=== PATIENT | male | born 1945 | race Caucasian/White ===

== ENCOUNTER → 2017-01-10 | Outpatient (CLI) | payer BC ==
[~2017-01-10] MED LIST: ASPEC325 PO; ISOS30TA3 PO; LISI-461 PO; METO100T14 PO; NTRARSCL UT; SIMV40TA4 PO
[2017-01-10 09:41] LABS: BASO % 1.1 %; BASO ABS # 0.06 K/uL (0-0.2); COMPLETE YES; EOS % 9.5 %; HEMATOCRIT 37.9 % (42-52); IG% 0.2 %; LYMPH % 36.9 %; LYMPH ABS # 1.98 K/uL (1.2-3.4); MEAN CELL VOLUME 90.5 fL (80-100); MEAN CORPUSCULAR HEMOGLOBIN 30.8 pg (25-34); MEAN PLATELET VOLUME 10.7 fL (7.4-10.4); MONO % 12.1 %; NEUT % 40.2 %; PLATELET COUNT 184 K/uL (130-400); RED BLOOD COUNT 4.19 M/uL (4.7-6.1); WHITE BLOOD COUNT 5.36 K/uL (4.8-10.8)
[2017-01-10 09:58] LABS: BLOOD UREA NITROGEN 17 mg/dl (7-18); BUN/CREATININE RATIO 15.2 (10-20); CALCIUM 8.4 mg/dl (8.5-10.1); CARBON DIOXIDE 29 mmol/L (21-32); CHLORIDE 104 mmol/L (98-107); CREATININE 1.09 mg/dl (0.60-1.40); GLUCOSE 91 mg/dl (70-99); POTASSIUM 4.5 mmol/L (3.5-5.1); SODIUM 139 mmol/L (136-145)
== END | disposition home or self-care (01) ==
LOC: C.LAB 08:30
PROVIDERS: ATTEND Internal Medicine Geriatric Medicine
DX: I25.10 Atherosclerotic heart disease of native coronary artery without angina pectoris (principal); M19.90 Unspecified osteoarthritis, unspecified site; D64.9 Anemia, unspecified

== ENCOUNTER → 2017-09-01 | Outpatient (CLI) | payer BC ==
--- NOTE | 2017-09-01 17:26 | DIAGNOSTIC IMAGING REPORT ---
RIGHT FIFTH TOE 4 VIEWS CLINICAL HISTORY: M79.89 RIGHT FIFTH TOE PAIN COMPARISON: None. DISCUSSION: No fractures or dislocations are visualized. No destructive lesions are visualized on conventional radiographic imaging area IMPRESSION: 1. No fractures or dislocations identified 2. No destructive lesions are visualized on conventional radiographic imaging Electronically signed by: Darren Walter M.D. 09/01/2017 5:25 PM Dictated Date/Time: 09/01/2017 5:24 PM
== END | disposition home or self-care (01) ==
LOC: C.RAD1850 16:23
PROVIDERS: ATTEND Internal Medicine
DX: M79.89 Other specified soft tissue disorders (principal)

== ENCOUNTER → 2017-09-01 | Outpatient (CLI) | payer BC | END | disposition home or self-care (01) | LOC: C.LABSPEC 17:49 | PROVIDERS: ATTEND Internal Medicine | DX: M79.89 Other specified soft tissue disorders (principal); S91.301A Unspecified open wound, right foot, initial encounter; X58.XXXA Exposure to other specified factors, initial encounter ==

== ENCOUNTER 2019-11-29 05:29 | Observation (INO) ==
--- NOTE | 2019-11-01 07:17 | PAT Medication Instructions ---
Medication Instructions Date of Service November 01, 2019 Home Medications Medication Instructions Recorded aspirin 81 mg PO QAM #30 tab 10/10/19 finasteride 5 mg tablet 5 mg PO DAILY #90 tab 10/26/19 tamsulosin 0.4 mg capsule 0.4 mg PO HS #90 cap 10/26/19 isosorbide mononitrate 30 mg tablet,extended release 24 hr 30 mg PO QAM metoprolol tartrate 100 mg tablet 100 mg PO BID simvastatin 40 mg tablet 40 mg PO QPM aspirin 81 mg PO QAM finasteride 5 mg tablet 5 mg PO DAILY tamsulosin 0.4 mg capsule 0.4 mg PO HS ASK your prescriber and surgeon aspirin 81 mg PO QAM Take morning of surgery With a small sip of water, OTHERWISE NOTHING TO EAT OR DRINK AFTER MIDNIGHT: isosorbide mononitrate 30 mg tablet,extended release 24 hr 30 mg PO QAM metoprolol tartrate 100 mg tablet 100 mg PO BID finasteride 5 mg tablet 5 mg PO DAILY Take evening before surgery metoprolol tartrate 100 mg tablet 100 mg PO BID simvastatin 40 mg tablet 40 mg PO QPM tamsulosin 0.4 mg capsule 0.4 mg PO HS Other Notes If you have any questions please call us at [phone] or [phone] or [phone] or [phone]
--- NOTE | 2019-11-01 11:57 | Anesthesiology Consultation ---
Date of Service November 01, 2019 Assessment & Plan (1) Encounter for pre-operative examination: COVID Status: As of 10/31 assessment, patient denies travel to endemic area, known exposure/sick contacts, or symptoms of COVID19. Patient instructed that they and their household members must follow strict social distancing guidelines, wear a mask in public and avoid travel for 14 days prior to surgery. Preoperative COVID19 testing to be completed prior to surgery per surgeon's a rrangements. Patient made aware to self-isolate as much as possible between COVID testing and surgery. Chart Review Chart Review: Acceptable Risk for Surgery (pending surgeon-ordered PCP clearance 11/07) and Patient seen in Pre Admission Testing Teaching & Discussion Instructed NPO after midnight before surgery, except medications with 15 cc of water. Medication instructions provided according to the PAT guidelines. History Surgery Operation Date: 11/19/19 09:15 Proposed Procedures p Transurethral Resection Prostate, Bilateral Retrograde Pyelogram, Possible Ureteroscopy - Santy Rodriguez, Height/Weight Height: 5 ft 10 in Weight: 79.832 kg Allergies Allergy/AdvReac Type Severity Reaction Status Date / Time lisinopril AdvReac Cough Verified 10/26/19 09:54 Medications Home Medications Medication Instructions Recorded Confirmed Last Taken isosorbide mononitrate 30 mg 30 mg PO QAM #90 tab 02/06/19 10/26/19 10/09/19 tablet,extended release 24 hr metoprolol tartrate 100 mg tablet 100 mg PO BID #60 tab 02/06/19 10/26/19 10/09/19 simvastatin 40 mg tablet 40 mg PO QPM #30 tab 02/06/19 10/26/19 10/08/19 aspirin 81 mg PO QAM #30 tab 10/10/19 10/26/19 Unknown finasteride 5 mg tablet 5 mg PO DAILY #90 tab 10/26/19 10/26/19 Unknown tamsulosin 0.4 mg capsule 0.4 mg PO HS #90 cap 10/26/19 10/26/19 Unknown Past Medical History Medical History (Updated 11/02/19 @ 12:49 by Atilio Vides) Arthritis Coronary artery disease [place] (1993). Catheterization with 100% prox LAD occlusion + 60% prox RCA lesion. Repeat catheterization (2004) with similar findings. Treated medically with full dose ASA + statin + BB + long acting nitrate + nitro PRN. Normal biventricular function on echo 2008. Follows with Dr. Singh. Diverticulosis Dyslipidemia Enlarged prostate on rectal examination Hiatal hernia History of recent hospitalization 10/09/2019 [facility] - urinary retention, ARF Hypertension Left inguinal hernia Normocytic anemia Chronic, stable with baseline H/H ~12/35 Urinary retention Exercise / Class Metabolic Activity II 4-5 Yardwork/Stairs/Walk up hill (Denies CP or SOB with 1 fos) Past Family History Family History Father Heart disease Stroke Brother Heart disease Myocardial infarction Other No family history of adverse response to anesthesia Denies family history of Ovarian cancer Prostate cancer Breast cancer Colorectal cancer Past Surgical History Surgical History H/O inguinal hernia repair History of cardiac cath [facility] [place] - [place] - [place] - no stents/angioplasty [facility] [place] - 2004 - no stents/angioplasty - reports 3 blockages but w/ esthela manley Follows w/ Dr. Singh History of colonoscopy History of tooth extraction Past Anesthesia History No Hx of Anesthesia Complications and No Family Hx of Anesthesia Complications History of PONV No Hx of PONV and No Hx of Motion Sickness Social History Smoking Status: Former smoker tobacco type: cigarettes Do You Dip or Chew Tobacco: No Smoking End Date: > 10 years ago Hx Alcohol Use: Yes Alcohol type: beer and wine alcohol intake frequency: a few times a month (none lately) Hx Substance Use: No substance use type: does not use Review of Systems Pt denies any recent chest pain, shortness of breath, palpitations, cough, fever, URI, or uncontrolled acid reflux. Physical Exam Vital Signs BP: 115/62 P: 66bpm SPO2: 98% RA T: 98.2 F R: 12 ENMT Mouth: + dentures (upper full); no chipped teeth and no loose teeth Thyromental Distance: < 3.5 Finger Breadths (3) Mallampati Class: II Neck normal visual inspection and + limited neck extension (moderately) Respiratory normal respiratory effort Auscultation: lungs clear to auscultation bilaterally Cardiovascular Rate/Rhythm: regular rate and regular rhythm Heart Sounds: no murmur Extremities: no edema Testing Laboratory Results 11/01/19 11:55 11/01/19 11:55 Urine Color Yellow 11/01/19 11:55 Urine Appearance Clear (Clear) 11/01/19 11:55 Urine pH 7.5 (4.5-7.5) 11/01/19 11:55 Ur Specific [place] 1.013 (1.000-1.030) 11/01/19 11:55 Urine Protein Negative (Negative) 11/01/19 11:55 Urine Glucose (UA) Negative (Negative) 11/01/19 11:55 Urine Ketones Negative (Negative) 11/01/19 11:55 Urine Nitrite Negative (Negative) 11/01/19 11:55 Ur Leukocyte Esterase Negative (Negative) 11/01/19 11:55 Urine WBC (Auto) 1-5 /hpf (0-5) 11/01/19 11:55 Urine RBC (Auto) 5-10 /hpf (0-4) H 11/01/19 11:55 U Hyaline Cast (Auto) 0 /lpf (0-5) 11/01/19 11:55 U Epithel Cells (Auto) 5-10 /lpf (0-5) H 11/01/19 11:55 Urine Bacteria (Auto) 1+ (Negative) H 11/01/19 11:55 Electrocardiogram Date: 10/09/19 Findings: + SB @ (54bpm) Septal infarct, age undetermined. Per review of records, septal infarct also present on 03/06/19 EKG done at cardiology office visit and reviewed by Dr. Singh. "QS complexes V1 and V2. Inverted T-wave lead aVL. Compared to an electrocardiogram performed September 18, 2015 there is no significant interval change." Chest X-Ray Date: 10/02/19 Findings: + NAD
[2019-11-01 13:25] LABS: Basophils # (auto) 0.06 K/uL (0-0.2); Eosinophils # (auto) 0.46 K/uL (0-0.5); Eosinophils % (auto) 7.9 %; Hematocrit (blood only) 34.3 % (42-52); Hemoglobin 11.7 g/dL (14.0-18.0); Immature Granulocytes # (auto) 0.01 K/uL (0.00-0.02); Immature Granulocytes % (auto) 0.2 %; Lymphocytes # (auto) 1.71 K/uL (1.2-3.4); Lymphocytes % (auto) 29.5 %; Mean Corpuscular Hemoglobin 30.8 pg (25-34); Mean Corpuscular Hgb Conc 34.1 g/dL (32-36); Mean Corpuscular Volume 90.3 fL (80-100); Mean Platelet Volume 10.6 fL (7.4-10.4); Monocytes # (auto) 0.47 K/uL (0.11-0.59); Monocytes % (auto) 8.1 %; Neutrophils # (auto) 3.09 K/uL (1.4-6.5); Neutrophils % (auto) 53.3 %; Platelet Count 193 K/uL (130-400); RDW Coefficient of Variation 12.5 % (11.5-14.5); RDW Standard Deviation 41.2 fL (36.4-46.3)
[2019-11-01 13:37] LABS: Appearance Urine Clear (Clear); Bacteria Urine Automated 1+ (Negative); Bilirubin Urine Negative (Negative); Blood Urine Trace (Negative); Cast Urine Automated 0 /lpf (0-5); Color Urine Yellow; Glucose Urine UA Negative (Negative); Ketones Urine Negative (Negative); Leukocyte Esterase Urine Negative (Negative); Nitrite Urine Negative (Negative); Protein Urine Negative (Negative); Specific Gravity Urine 1.013 (1.000-1.030); Urobilinogen Urine Negative (Negative); pH Urine 7.5 (4.5-7.5)
[2019-11-01 13:39] LABS: BUN Creatinine Ratio 13.7 (10-20); Calcium 8.8 mg/dl (8.5-10.1); Creatinine Clr Calc Pharmacy 43.1 ml/min; Est GFR (African American) 50.8; Est GFR (Non-African American) 43.8; Potassium 4.9 mmol/L (3.5-5.1)
[~2019-11-29 05:29] MED LIST changes: -ASPEC325 PO; +CIPROFLOXACIN / D5W 400 MG/200 ML BAG IV SCH; -ISOS30TA3 PO; +LACTATED RINGER'S 1,000 ML IV SCH; -LISI-461 PO; -METO100T14 PO; -NTRARSCL UT; -SIMV40TA4 PO
[2019-11-29] MEDS ORDERED: CIPROFLOXACIN / D5W 400 MG/200 ML BAG IV SCH (06:00)
[2019-11-29] MEDS ORDERED: LR 15ML/HR IV SCH (06:00)
[2019-11-29] MEDS ORDERED: PROPOFOL IV EMULSION 10 MG/ML 20 ML VIAL IV ONE (06:45)
[2019-11-29] MEDS ORDERED: fentaNYL citrate 100 MCG/2 ML VIAL ONE (06:45)
[2019-11-29] MEDS ORDERED: MIDAZOLAM HCL 1 MG/ML 2ML VIAL ONE (06:45)
[2019-11-29] MEDS ORDERED: LIDOCAINE HCL 2% 2 ML VIAL/AMP(20MG/ML) INFIL ONE (06:45)
[2019-11-29] MEDS ORDERED: MoRPHine SULFATE 4 MG/ML 1 ML CARP\\VIAL IV PRN (07:01)
[2019-11-29] MEDS ORDERED: BELLADONNA/OPIUM SUPP 60 MG SUPP PR PRN (07:01)
[2019-11-29] MEDS ORDERED: ONDANSETRON INJ 2 MG/ML 2 ML VIAL IV PRN ×2 (07:01→07:22)
[2019-11-29] MEDS ORDERED: oxyCODONE HCL IR 5 MG TAB (IMMEDIATE RELEASE) PO PRN (07:01)
--- NOTE | 2019-11-29 07:01 | History & Physical Report ---
Date of Service November 29, 2019 Assessment & Plan Admission and Anticipated Discharge Date Admission Date: Risks and benefits discussed at length for procedure. These include bleeding, infection, injury to surrounding tissues or organs, and risks associated with anesthesia. Patient states understanding and agrees to proceed. Will sign consent and schedule. Plan for Transurethral resection of prostate and bilateral retrograde pyelogram History of Present Illness Primary Care Provider: Javid Jeong DO Patient here for procedure. No changes in medical issues. No major changes in urinary issues. Continued issues and concerns. No change in pain or discomfort. No severe fevers or chills. No chest pain or shortness of breath. Risks and benefits discussed at length for procedure. These include bleeding, infection, injury to surrounding tissues or organs, and risks associated with anesthesia. Patient and/or family states understanding and agrees to proceed. Consent and supporting information completed. Allergies Allergy/AdvReac Type Severity Reaction Status Date / Time lisinopril AdvReac Cough Verified 11/29/19 05:44 Home Medications Home Medications Medication Instructions Recorded Confirmed Type isosorbide mononitrate 30 mg 30 mg PO QAM #90 tab 02/06/19 11/08/19 History tablet,extended release 24 hr metoprolol tartrate 100 mg tablet 100 mg PO BID #60 tab 02/06/19 11/29/19 History simvastatin 40 mg tablet 40 mg PO QPM #30 tab 02/06/19 11/08/19 History aspirin 81 mg PO QAM #30 tab 10/10/19 11/29/19 Rx finasteride 5 mg tablet 5 mg PO DAILY #90 tab 10/26/19 11/29/19 Rx tamsulosin 0.4 mg capsule 0.4 mg PO HS #90 cap 10/26/19 11/08/19 Rx cephalexin 500 mg capsule 500 mg PO BID 5 Days #10 cap 11/05/19 11/29/19 Rx Past Med/Surg History Medical History Arthritis Coronary artery disease [place] (1993). Catheterization with 100% prox LAD occlusion + 60% prox RCA lesion. Repeat catheterization (2004) with similar findings. Treated medically with full dose ASA + statin + BB + long acting nitrate + nitro PRN. Normal biventricular function on echo 2008. Follows with Dr. Singh. Diverticulosis Dyslipidemia Enlarged prostate on rectal examination Hiatal hernia History of recent hospitalization 10/09/2019 [facility] - urinary retention, ARF Hypertension Left inguinal hernia Normocytic anemia Chronic, stable with baseline H/H ~12/35 Urinary retention Surgical History H/O inguinal hernia repair History of cardiac cath [facility] [place] - [place] - [place] - no stents/angioplasty [facility] [place] - 2004 - no stents/angioplasty - reports 3 blockages but w/ good jacques ateral Follows w/ Dr. Singh History of colonoscopy History of tooth extraction Family History Father Heart disease Stroke Brother Heart disease Myocardial infarction Other No family history of adverse response to anesthesia Denies family history of Ovarian cancer Prostate cancer Breast cancer Colorectal cancer Social History (Updated 11/08/19 @ 08:51 by Lilly Grey) Smoking Status: Former smoker Tobacco Type: Cigarettes Age Started Using Tobacco: 15; Age Quit Using Tobacco: 64; packs per day: 1; Smoking End Date: > 10 years ago; Second Hand Exposure: No (dad was a smoker, used to smoke); Do You Dip or Chew Tobacco: No; Tobacco Cessation Education Requested by Patient: No Hx Alcohol Use: No Hx Substance Use: No Preferred Language: Hungarian Communication Ability: Effective Visual Impairment: Diminished Hearing Ability: Normal Piano Teacher Required: No Beliefs That Will Affect Care: None marital status: Current Living Situation: Spouse current occupational status: retired Feels Safe at Home: Yes Safety Concerns: Feels Safe At This Time Childhood Exposure to Second-Hand Smoke: No caffeine: Yes Dental Care, Regularly: No Physical Activity Frequency: Daily Physical Activity Frequency Comment: 2 miles daily Seatbelt Use: always Sunscreen Use: No Assistive Devices: Denture - Upper and Glasses Review of Systems All systems reviewed & are unremarkable except as noted in HPI & below Physical Exam Physical Exam: General: Alert/Arousable. No Acute illness. . HEENT: Inspection normal. Normal inspection of face. Normal inspection of neck. Psychologic: Normal affect/No change in mentation. Respiratory: No use of accessory muscles. No respiratory changes or exacerbation or changes with tachypnea or dyspnea. Cardiovascular: No tachycardia Skin: [place] and Dry. No new rashes or visible lesions. Abdomen: Normal inspection. No guarding. Results & Data ([facility]) Vital Signs (Past 12 Hours) Vital Signs Temp Pulse Resp BP Pulse Ox 11/29/19 05:52 36.5 C 64 18 147/84 H 99 PG Care Time/CCT Total # of Minutes Spent Total Time Spent with Patient: Total time spent is greater than 50% in coordination of care (as documented) at patient's floor/unit and/or counseling patient: Coding Level of Care Code 63851 Initial Inpt Care Lvl 3
[2019-11-29] MEDS ORDERED: ATROPINE SULFATE 0.1 MG/ML 10ML SYR IV PRN (07:22)
[2019-11-29] MEDS ORDERED: fentaNYL citrate 100 MCG/2 ML VIAL IV PRN (07:22)
[2019-11-29] MEDS ORDERED: ONDANSETRON INJ 2 MG/ML 2 ML VIAL ONE (07:35)
[2019-11-29] MEDS ORDERED: DIATRIZOATE MEGLUMINE 30% 100ML VIAL INSTIL ONE (08:18)
--- NOTE | 2019-11-29 08:27 | Operative Report ---
PG Post Operative Report Pre & Post Diagnosis Operation Date: 11/29/19 07:15 Pre-Op Diagnosis: Benign Prostatic Hyperplasia with Obstruction of the Bladder Post-Op Diagnosis: Benign Prostatic Hyperplasia with Obstruction of the Bladder I identified the patient and participated in the time-out.: Yes Procedure Operation Date: 11/29/19 07:15 Actual Procedures p Transurethral Resection Prostate, Bilateral Retrograde Pyelogram(Not Applicable) - Santy Rodriguez DO Surgeon Santy Rodriguez, II, DO Otr Refrigerated Cdl Truck Driver None Estimated Blood Loss 5 Findings Consistent with Post-Op Diagnosis Large Prostate with obstruction. Dilated left collecting system. Specimens Prostate adenoma. Drains 22Fr Catheter [address] Anesthesia Type General Complications none Disposition Disposition: Recovery Room Indications Patient with obstruction due to prostate enlargement. Risks and benefits discussed at length. Description of Procedure Patient was consented and brought back to the operating room. Patient was placed under anesthesia in the supine position and moved to the dorsal lithotomy position. Patient was prepped and draped in the regular sterile fashion. A time out was completed. A 30degree Cystoscope was placed into the bladder and the entire bladder was examined. The UO's were identified as well as the bladder neck, trigone, dome, and the other important landmarks. The UO was cannulized and retrograde pyelograms were completed. Moderate dilated system but no obvious stricture. The prostatic urethra and large lobes/adenoma was assessed and the veru and bladder neck identified and area/size was assessed. The resection scope was placed and the fine bipolar loop was selected. Starting at the 5 and 7 o'clock positions, a channel was created from bladder neck to the veru. The lateral edges from 1 and 11 o'clock were then resected down to the channel. The excess tissue was resected and a large channel was created. Resection was taken down to prostate capsule. The Specimen was removed and sent for analysis. The resection bed and any bleeding areas were fulgurated/cauterized and the entire area inspected. All bleeding was controlled. The bladder was inspected a final time. The bladder was emptied and irrigated. All specimen and debris was removed. The scope was removed with the bladder partially full. A catheter was placed and balloon elevated. This was easily irrigated. This was set to CBI. The patient was cleaned, aroused from anesthesia, and transferred to the pacu in stable condition having tolerated the procedure well with no complications. I was present and participated in all aspects of the procedure. The patient will be monitored in the PACU until transferred. I attest to the content of the Intraoperative Record and any orders documented therein. Any exceptions are noted below.
--- NOTE | 2019-11-29 09:39 | Fluoroscopy Report ---
INTRAOPERATIVE RADIOGRAPHS CLINICAL HISTORY: Bilateral retrograde pyelograms. Fluoroscopy time: 30 seconds. FINDINGS: 8 spot fluoroscopic views of the abdomen from bilateral retrograde pyelograms are correlate d with abdominal CT dated 10/08/2019. The initial images show contrast opacification of the left urete rs and renal collecting system. There is moderate to severe left-sided hydronephrosis. There is only mild dilatation of the left ureter. No filling defects are clearly identified. There is subsequent op acification of the right renal collecting system. There is mild to moderate right-sided hydronephrosi s. IMPRESSION: Retrograde pyelogram images showing left greater than right bilateral hydronephrosis. Electronically signed by: Abdullahi Gordon M.D. 11/29/2019 9:37 AM
[2019-11-29 09:53] LABS: Basophils # (auto) 0.03 K/uL (0-0.2); Basophils % (auto) 0.5 %; Eosinophils # (auto) 0.33 K/uL (0-0.5); Eosinophils % (auto) 5.9 %; Hematocrit (blood only) 32.7 % (42-52); Immature Granulocytes # (auto) 0.01 K/uL (0.00-0.02); Immature Granulocytes % (auto) 0.2 %; Lymphocytes % (auto) 23.1 %; Mean Corpuscular Hemoglobin 30.2 pg (25-34); Mean Corpuscular Hgb Conc 33.6 g/dL (32-36); Mean Corpuscular Volume 89.8 fL (80-100); Monocytes % (auto) 10.7 %; Neutrophils # (auto) 3.35 K/uL (1.4-6.5); Neutrophils % (auto) 59.6 %; Platelet Count 172 K/uL (130-400); RDW Coefficient of Variation 12.5 % (11.5-14.5); RDW Standard Deviation 41.4 fL (36.4-46.3); Red Blood Count 3.64 M/uL (4.7-6.1); White Blood Count 5.62 K/uL (4.8-10.8)
[2019-11-29 10:25] LABS: BUN Creatinine Ratio 12.6 (10-20); Calcium 8.6 mg/dl (8.5-10.1); Creatinine Clr Calc Pharmacy 49.9 ml/min; Est GFR (African American) 60.7; Est GFR (Non-African American) 52.4; Potassium 4.7 mmol/L (3.5-5.1)
--- NOTE | 2019-11-29 10:32 | Anesthesiology Progress Note ---
Date of Service November 29, 2019 Anesthesia Post Procedure Vital Signs Vital Signs: Temp Pulse Pulse Resp BP BP Pulse Ox 11/29/19 09:30 36.2 C L 52 L 16 118/75 98 11/29/19 09:20 55 L 15 119/65 98 11/29/19 09:10 54 L 16 113/58 L 97 11/29/19 09:00 36.8 C 53 L 17 115/68 97 11/29/19 08:50 56 L 16 118/66 100 11/29/19 08:40 54 L 14 122/63 100 11/29/19 08:29 36.0 C L 55 L 15 141/67 H 100 11/29/19 05:52 36.5 C 64 18 147/84 H 99 Transfer of Care Handoff Completed per policy Notes Mental Status: alert / awake / arousable Patient Amnestic to Procedure: Yes Nausea / Vomiting: adequately controlled Pain: adequately controlled Airway Patency, RR, SpO2: stable & adequate BP & HR: stable & adequate Hydration State: stable & adequate Anesthetic Complications: no major complications apparent
[2019-11-29] MEDS: SODIUM CHLORIDE 0.9% 1000ML 1,000 ML IV SCH ×2 (11:34→22:37)
[2019-11-29] MEDS: ceFAZolin 2000MG 2,000 MG/15 ML SYR IV SCH ×2 (14:47→22:37)
[2019-11-29] MEDS: FINASTERIDE 5 MG TAB PO SCH (14:48)
[2019-11-29] MEDS: DOCUSATE SODIUM 100 MG CAP PO SCH ×2 (14:48→20:47)
[2019-11-29] MEDS: METOPROLOL TARTRATE 100 MG TAB PO SCH (20:47)
[2019-11-29] MEDS ORDERED: SIMVASTATIN 40 MG TAB PO SCH (21:00)
[2019-11-29] MEDS ORDERED: TAMSULOSIN HCL 0.4 MG CAP PO SCH (21:00)
[2019-11-30] MEDS: ceFAZolin 2000MG 2,000 MG/15 ML SYR IV SCH (05:34)
[2019-11-30] MEDS: METOPROLOL TARTRATE 100 MG TAB PO SCH (08:02)
[2019-11-30] MEDS: FINASTERIDE 5 MG TAB PO SCH (08:02)
[2019-11-30] MEDS: DOCUSATE SODIUM 100 MG CAP PO SCH (08:03)
--- NOTE | 2019-11-30 08:47 | Urology Progress Note ---
Date of Service November 30, 2019 Assessment & Plan (1) Benign prostate hyperplasia: 74 yo M POD #1 s/p TURP with Dr. Rodriguez. - Doing well, progressing as expected. Offers no complaints and feels ready for discharge today. - Patel catheter with CBI running on slow at time of exam, urine clear yellow in tubing, no clots. - CBI clamped at 0840 this AM. - Plan to discharge to home today if he continues to progress as expected. - Patel reassessed @1015. Urine remains clear yellow in tubing, no clots. Order placed to d/c CBI. - Expected clinical course reviewed, all questions answered. - Discharge to home with Patel catheter in place, RN to teach patient on conversion to leg bag. - Will arrange appropriate outpatient follow-ups with our service. Admission and Anticipated Discharge Date Admission Date: November 29, 2019 Subjective 74 yo M POD #1 s/p TURP with Dr. Rodriguez. Pt examined at bedside this AM. Awake, sitting up in bed, appears comfortable. No issues overnight. Offers no complaints at present. Denies abdominal, suprapubic, or flank pain. Patel catheter intact, patent, CBI running on slow at time of exam, urine clear yellow in tubing, no clots. Tolerating Patel catheter. CBI clamped during exam @0840. RN made aware. Tolerating diet, no nausea or vomiting. No fever or chills. Feels ready for discharge today. Review of Systems Constitutional: as per Subjective / HPI Gastrointestinal: as per Subjective / HPI Genitourinary: + as per Subjective / HPI Physical Exam Constitutional: well developed and well nourished; no acute distress and not ill appearing Respiratory: normal respiratory effort and able to speak in complete sentences; no respiratory distress and no labored breathing Cardiovascular: Extremities: no pedal edema Gastrointestinal (Abdomen): Inspection/Auscultation: abdomen normal to inspection; abdomen not distended Percussion/Palpation: abdomen soft; abdomen nontender and no guarding Musculoskeletal: Head/Neck/Chest: normocephalic and head atraumatic Extremities: extremities normal to inspection Skin: no rashes, warm and dry Neurologic: moves all extremities and awake Psychiatric: A+Ox3, euthymic affect Genitourinary: no CVA tenderness Patel catheter intact, patent, CBI running on slow at time of exam, urine clear yellow, no clots Results & Data ([facility]) Vital Signs (Past 12 Hours) Vital Signs Temp Pulse Pulse Resp BP Pulse Ox 11/30/19 08:06 36.5 C 59 L 18 154/75 H 99 11/30/19 07:38 60 11/30/19 03:05 36.6 C 59 L 18 124/68 98 11/30/19 00:24 60 11/29/19 23:22 36.7 C 56 L 18 127/66 99 PG Care Time/CCT Total # of Minutes Spent Total Time Spent with Patient: Total time spent is greater than 50% in c oordination of care (as documented) at patient's floor/unit and/or counseling patient: Coding Level of Care Code 66385 Subseq Hosp Care Lvl 2 Diagnoses Benign prostate hyperplasia N40.1; R33.8 Lower urinary tract symptom detail: urinary retention Lower urinary tract symptom presence: symptoms present (1) Benign prostate hyperplasia Lower urinary tract symptom detail: urinary retention Lower urinary tract symptom presence: symptoms present Qualified Code(s): N40.1 - Benign prostatic hyperplasia with lower urinary tract symptoms; R33.8 - Other retention of urine
[2019-11-30] MEDS ORDERED: ISOSORBIDE MONO EXTENDED REL 30 MG TABCR PO SCH (09:00)
[2019-11-30] MEDS: SODIUM CHLORIDE 0.9% 1000ML 1,000 ML IV SCH (10:27)
--- NOTE | 2019-12-02 12:07 | Discharge Summary ---
Date of Service December 02, 2019 Admission HPI Per Admitting Provider Patient here for procedure. No changes in medical issues. No major changes in urinary issues. Continued issues and concerns. No change in pain or discomfort. No severe fevers or chills. No chest pain or shortness of breath. Risks and benefits discussed at length for procedure. These include bleeding, infection, injury to surrounding tissues or organs, and risks associated with anesthesia. Patient and/or family states understanding and agrees to proceed. Consent and supporting information completed. Admission Exam Per Admitting Provider See H&P Principal Diagnosis BPH with obstruction Discharge Exam General: Alert in no acute distress. HEENT: Normocephalic Atraumatic. Inspection normal. Psychologic: Normal affect. Skin: [place] and Dry. No rashes or visible lesions. Abdomen: Soft Non-distended. No rebound or guarding. Discharge Data Allergies Allergy/AdvReac Type Severity Reaction Status Date / Time lisinopril AdvReac Cough Verified 11/29/19 05:44 Procedures Performed Operation Date: 11/29/19 07:15 Actual Procedures p Transurethral Resection Prostate, (Not Applicable) - Santy Rodriguez DO s Bilateral Retrograde Pyelogram(Bilateral) - Santy Rodriguez DO Ordered Studies 11/29/19 07:15 FL retrograde includes kub Routine Hospital Course (1) Benign prostate hyperplasia: 74 yo M POD #1 s/p TURP with Dr. Rodriguez. - Doing well, progressing as expected. Offers no complaints and feels ready for discharge today. - Patel catheter with CBI running on slow at time of exam, urine clear yellow in tubing, no clots. - CBI clamped at 0840 this AM. - Plan to discharge to home today if he continues to progress as expected. - Patel reassessed @1015. Urine remains clear yellow in tubing, no clots. Order placed to d/c CBI. - Expected clinical course reviewed, all questions answered. - Discharge to home with Patel catheter in place, RN to teach patient on conver graciela to leg bag. - Will arrange appropriate outpatient follow-ups with our service. Total Time Total Time Spent Total Time Spent (In Minutes): 10 minutes Total Time Includes: Examination of the Patient, Discharge Planning, Medication Reconciliation and Communication With Other Providers Discharge Plan Discharge Items Patient Disposition: Home - Self-Care Reason For Visit: Hydronephrosis Due to Obstruction of the Bladder Discharge Diagnosis: Hydronephrosis Due to Obstruction of the Bladder Activity: Per Instructions section Lifting: No more than 25 pounds Bathing Comment: Okay to shower in 1 day, no tub bath or soaking Sexual Activity: Wait until after follow-up appointment Exercise/Sports: Wait until after follow-up appointment Driving/Machine Use: Okay to resume 1 day after discharge, no driving with prescription pain med Non-emergency contact: Urologist Call non-emergency contact if: your symptoms worsen, your pain is not controlled, your pain is worsening, your pain is unusual for you, you have a fever and your temperature is above 101 Follow-up/Referrals: Santy Rodriguez DO [Physician] - 12/28/19 12:15 pm Javid Jeong DO [Primary Care Provider] - 12/05/19 11:30 am [facility],RN [FAKE FOR SCHEDULES] - 12/07/19 11:10 am Diet: Regular Addtl Attending Provider Instructions: Please take all medications as prescribed and keep all follow-ups as scheduled. Please call our office at [phone] with any questions, concerns or need to reschedule appointments for any reason. We are happy to assist you. Tips for your recovery at home: Dont be alarmed by brownish or reddish blood or clots in your urine. This is a result of the procedure. This may occur off and on for weeks to months after the procedure but should continue to improve. Drink plenty of fluids during the day (enough to keep your urine very light colored). This will help keep a healthy flow of urine. Do not lift >25 lbs until your followup Avoid constipation. Please use a stool softener (Colace) for the first two weeks after your procedure Be sure to finish the antibiotics as prescribed. If you go home with a catheter, please wash tubing where it enters your body twice daily with mild soap (Dove or Dial). Once your catheter is removed, expect some blood in your urine and some burning when you urinate. You should have an appointment to have this removed, if you do not please call our office to arrange. Pending Studies at Discharge: Yes (pathology) Stand-Alone Forms: My [employer], Smoking Cessation Medications and DC Order Prescriptions: New docusate sodium [Colace] 100 mg capsule 100 mg PO BID Qty: 60 RF: 0 ciprofloxacin HCl 250 mg tablet 250 mg PO BID 5 Days Qty: 10 RF: 0 oxycodone-acetaminophen [Percocet] 5-325 mg tablet 1 tab PO TID PRN (Reason: pain) Qty: 7 RF: 0 Continued finasteride 5 mg tablet 5 mg PO DAILY Qty: 90 RF: 1 tamsulosin 0.4 mg capsule 0.4 mg PO HS Qty: 90 RF: 1 isosorbide mononitrate 30 mg tablet extended release 24 hr 30 mg PO QAM Qty: 90 RF: 0 metoprolol tartrate 100 mg tablet 100 mg PO BID Qty: 60 RF: 0 simvastatin 40 mg tablet 40 mg PO QPM Qty: 30 RF: 0 aspirin 81 mg Tablet,Delayed Release (Dr/Ec) 81 mg PO QAM Qty: 30 RF: 0 Discontinued cephalexin [Keflex] 500 mg capsule 500 mg PO BID 5 Days Qty: 10 RF: 0 Discharge Orders: Discharge Order (Routine); Ordered 11/30/19 Ordered By: Naomi Matthews Admission Data Admit Date/Time: 11/29/19 07:01 Attending Provider: Santy Rodriguez Admit Provider: Santy Rodriguez Primary Care Provider: Javid Jeong Other Interventions: Discharge Summary Assessment (RN) Last Done: 11/30/19 11:53 Coding Level of Care Code D/C Day Management <30 mins Diagnoses Benign prostate hyperplasia N40.1; R33.8 Lower urinary tract symptom presence: symptoms present Lower urinary tract symptom detail: urinary retention
== END 2019-11-30 13:00 | disposition home or self-care (01) ==
LOC: ASU 05:29 → 3N 05:29 → 2N 10:58

== ENCOUNTER 2020-11-30 01:33 | Observation (INO) ==
[2020-11-30] MEDS ORDERED: ONDANSETRON INJ 2 MG/ML 2 ML VIAL IV STA (01:59)
[2020-11-30] MEDS ORDERED: fentaNYL citrate 100 MCG/2 ML VIAL IV STA (02:00)
[2020-11-30 02:04] LABS: Hematocrit (blood only) 40.4 % (42-52); Hemoglobin 13.9 g/dL (14.0-18.0); Mean Corpuscular Hemoglobin 31.1 pg (25-34); Mean Corpuscular Hgb Conc 34.4 g/dL (32-36); Mean Corpuscular Volume 90.4 fL (80-100); Mean Platelet Volume 10.7 fL (7.4-10.4); Platelet Count 185 K/uL (130-400); RDW Coefficient of Variation 12.7 % (11.5-14.5); RDW Standard Deviation 41.7 fL (36.4-46.3); Red Blood Count 4.47 M/uL (4.7-6.1); White Blood Count 9.32 K/uL (4.8-10.8)
[2020-11-30 02:13] LABS: Alanine Aminotransferase 21 U/L (12-78); Albumin Level 3.7 gm/dl (3.4-5.0); Aspartate Aminotransferase 13 U/L (15-37); BUN Creatinine Ratio 14.2 (10-20); Blood Urea Nitrogen 19 mg/dl (7-18); Calcium 8.6 mg/dl (8.5-10.1); Carbon Dioxide 24 mmol/L (21-32); Chloride 106 mmol/L (98-107); Creatinine Clr Calc Pharmacy 55.9 ml/min; Est GFR (African American) 59.8 ml/min; Est GFR (Non-African American) 51.6 ml/min; Glucose 166 mg/dl (70-99); Lipase 86 U/L (73-393); Potassium 4.3 mmol/L (3.5-5.1); Sodium 135 mmol/L (136-145)
[2020-11-30 02:16] LABS: Partial Thromboplastin Ratio 1.1; Partial Thromboplastin Time 28.4 Seconds (21.0-31.0)
[2020-11-30 02:17] LABS: iSTAT Creatinine 1.1 mg/dl (0.6-1.3); iSTAT Hemoglobin 13.6 g/dl (14.0-18.0); iSTAT Ionized Calcium 1.3 mmol/l (1.12-1.32); iSTAT Potassium 4.4 mmol/L (3.3-5.0)
[2020-11-30 02:18] LABS: Albumin Globulin Ratio 1.1 (0.9-2); Alkaline Phosphatase 103 U/L (45-117); Bilirubin,Total 0.4 mg/dl (0.2-1); Globulin 3.5 gm/dl (2.5-4.0); Total Protein 7.2 gm/dl (6.4-8.2); Troponin I < 0.015 ng/ml (0-0.045)
[2020-11-30] MEDS ORDERED: OPTIRAY 320 125ml IV ONE (02:25)
[2020-11-30 02:32] LABS: Basophils # (auto) 0.01 K/uL (0-0.2); Basophils % (auto) 0.1 %; Eosinophils # (auto) 0.28 K/uL (0-0.5); Immature Granulocytes # (auto) 0.02 K/uL (0.00-0.02); Immature Granulocytes % (auto) 0.2 %; Lymphocytes # (auto) 0.44 K/uL (1.2-3.4); Lymphocytes % (auto) 4.7 %; Monocytes # (auto) 0.93 K/uL (0.11-0.59); Neutrophils # (auto) 7.64 K/uL (1.4-6.5)
--- NOTE | 2020-11-30 04:36 | History & Physical Report ---
Date of Service November 30, 2020 Assessment & Plan (1) Epigastric pain: Plan: Mr. Okeefe is a 75 yo M with a PMHx of CAD and GERD who presented to [facility] for evaluation of sudden onset epigastric pain. - etiology uncertain: CTA of chest and abdomen showed no perforation or aneurysmal dissection. - Differential includes gastric vs. cardiac origin - Finding of moderate mucosal thickening in distal esophagus on CTA of abdomen is concerning for peptic ulcer disease; risk factors include etoh intake and hiatal hernia - Protonix 40mg IV BID ordered; consider GI consult as an outpatient for consideration fo EGD - ACS is also possible; heart score of 3, low risk. trop on admission undetectable. EKG without acute signs of ischemia. Trend serial trops; defer echo at this time given higher suspicion for GI origin; consider adding if he bumps a trop - fentanyl 50mcg in ED for pain management; IV Tylenol prn (2) Coronary artery disease: Plan: - continue home simvastatin, asa, imdur and metoprolol (3) Hypertension: Plan: - continue home dose metoprolol - renal artery stenosis noted on CTA of abdomen; if his BP runs above goal in the future, consideration could be given to stenting (4) CKD (chronic kidney disease) stage 4, GFR 15-29 ml/min: Plan: - Creatinine 1.33 on admission, Cr Cl 51 - renally dose as appropriate; avoid nsaids (5) Abdominal aortic aneurysm: Plan: - noted incidentally on CTA of abdomen - small size (2.6cm) - not a current smoker - routine surveillance (6) Benign prostate hyperplasia: Plan: - continue home dose finasteride Dispo: Med/Surg with tele DVT ppx: heparin SQ 5,000 units q12 Diet: NPO until speech eval (ordered due to debris being visualized in lower portion of trachea on CTA of chest) Code: Full, I discussed with patient History of Present Illness Primary Care Provider: Javid Jeong DO Mr. Okeefe is a 75 yo gentleman who came to the [facility] ED for evaluation of sudden onset epigastric pain. He went to bed this evening and the sharp epigastric pain awoke him from sleep. He did vomit once after the pain started; it was non-bloody. He became slightly diaphoretic after vomiting, but denies any associated SOB. He said the pain seemed to be worse when laying flat - in response he got up out of bed and felt better in a standing position. The pain is provoaked by deep inspiration. He did have one episode of diarrhea yesterday. No fevers. He does have a history of CAD and GERD. He manages the latter with prn TUMS, as he is not on any acid blocking therapy. He likened the sensation he felt this evening to his typical reflux - however it differed in that he usually feels acid reflux all the way up to the throat. This time, the pain is concentrated in the epigastrium. Sx: Former smoker- quit many years ago. He does drink 4 beers, twice weekly. Does not use NSAIDs due to his underlying CKD In the ED, he was febrile and hemodynamically stable. His CBC and CMP were normal. His trop was undetectable. Lipase was not elevated. EKG showing NSR at 84 bpm; no acute ST segment changes. Chest/Abdomen CTA showed no acute findings; there was moderate mucosal thickening of the distal esophagus suggestive of irritation; small hiatal hernia noted; debris in the lower trachea; moderate stenosis of the ostium of the R renal artery; 2.6 mm infrarenal abdominal aortic aneurysm (per STAT RAD). He was given zofran and fentanyl 50mcg. Allergies Allergy/AdvReac Type Severity Reaction Status Date / Time lisinopril AdvReac Cough Verified 11/30/20 02:51 Home Medications Medication Instructions Recorded Confirmed Type isosorbide mononitrate 30 mg 30 mg PO QAM #90 tab 02/06/19 11/30/20 History tablet,extended release 24 hr metoprolol tartrate 100 mg tablet 100 mg PO BID #60 tab 02/06/19 11/30/20 History simvastatin 40 mg tablet 40 mg PO HS #30 tab 02/06/19 11/30/20 History aspirin 81 mg tablet,delayed 81 mg PO QAM #30 tab 10/10/19 11/30/20 Rx release docusate sodium 100 mg capsule 100 mg PO BID PRN cap 12/05/19 11/30/20 History (Colace) finasteride 5 mg tablet 5 mg PO QAM #90 tab 11/03/20 11/30/20 Rx pantoprazole 40 mg tablet,delayed 40 mg PO DAILY #30 tab 11/30/20 Rx release (Protonix) Past Med/Surg History Medical History (Updated 11/30/20 @ 17:55 by Elizabeth Mcclain MD) Arthritis Coronary artery disease [place] (1993). Catheterization with 100% prox LAD occlusion + 60% prox RCA lesion. Repeat catheterization (2004) with similar findings. Treated medically with full dose ASA + statin + BB + long acting nitrate + nitro PRN. Normal biventricular function on echo 2008. Follows with Dr. Singh. Diverticulosis Dyslipidemia Enlarged prostate on rectal examination Hiatal hernia Hypertension Left inguinal hernia Normocytic anemia Chronic, stable with baseline H/H ~1235 Pulmonary nodule Recurrent left inguinal hernia Surgical History H/O inguinal hernia repair History of cardiac [place] [facility] [place] no stents/angioplasty [facility] [place] - no stents/angioplasty - reports 3 blockages but w/ good collateral Follows w/ Dr. Singh History of colonoscopy History of tooth extraction S/P TURP (status post transurethral resection of prostate) Family History Father Heart disease Stroke Brother Heart disease Myocardial infarction Other No family history of adverse response to anesthesia Denies family history of Ovarian cancer Prostate cancer Breast cancer Colorectal cancer Social History Smoking Status: Never smoker Tobacco Type: Cigarettes Age Started Using Tobacco: 15; Age Quit Using Tobacco: 64; packs per day: 1; Years Smoked: 49; Cigarettes Per Day: 1 pack a day; Second Hand Exposure: Yes (hx); Hx Alcohol Use: No Hx Substance Use: No Preferred Language: Tajik Communication Ability: Effective Visual Impairment: Partially Limited Hearing Ability: Use of Hearing Aid [employer] Required: No Beliefs That Will Affect Care: None marital status: Current Living Situation: Spouse current occupational status: retired Feels Safe at Home: Yes Childhood Exposure to Second-Hand Smoke: No caffeine: Yes Dental Care, Regularly: No Physical Activity Frequency: 3-4 Times per Week Physical Activity Frequency Comment: 2 miles daily Seatbelt Use: always Sunscreen Use: No Assistive Devices: None Review of Systems Review of Systems: All systems reviewed & are unremarkable except as noted in HPI & below Physical Exam Constitutional: WD/WN, vitals as above cooperative Eyes: PERRL, conjunctivae normal, anicteric sclerae ENMT: external ear and nose normal, oropharynx normal Neck: trachea midline Respiratory: normal respiratory effort, lungs clear to auscultation Cardiovascular: RRR, no murmur, no edema Heart Sounds: normal S1 and normal S2 Gastrointestinal (Abdomen): Inspection/Auscultation: + abdomen distended and normal bowel sounds Percussion/Palpation: + abdomen tender (epigasgtrium ) and abdomen soft; no guarding Musculoskeletal: Head/Neck/Chest: normocephalic and head atraumatic Skin: no rashes, warm and dry Psychiatric: A+Ox3, euthymic affect Results & Data Results & Data ([facility]) Vital Signs (Past 12 Hours) Vital Signs Temp Pulse Resp BP Pulse Ox 11/30/20 04:00 72 22 183/97 H 96 11/30/20 02:30 83 20 95 11/30/20 02:00 79 18 96 11/30/20 01:50 37.1 C 89 22 153/96 H 94 Supervising Physician Co-Signing Physician Notes Attending addendum: I have physically seen this patient, have supervised the medical residents activities, and agree with the H&P unless as otherwise noted. Assessment and Plan: chest pain/CAD/hypertension The patient will be admitted to telemetry for serial cardiac enzymes, serial EKG's, cardiac rhythm monitoring and a 2-D echocardiogram with Dopplers. Continue isosorbide mononitrate, metoprolol tartrate, and aspirin Possible renal artery stenosis noted on CT, monitor closely if blood pressure becomes recalcitrant and treat aggressively Epigastric pain- Moderate mucosal thickening in the distal esophagus concerning for peptic ulcer disease, in setting of alcohol intake and hiatal hernia Protonix 40 mg IV twice daily Should consider EGD CKD stage IV- Monitor renal artery status as noted above Follow serial laboratories Remaining orders and notations as noted Resident Activity Tracking Resident Involvement: Resident Care Provided Care Provided: Adult Hospital Medicine (1) Benign prostate hyperplasia Lower urinary tract symptom detail: urinary retention Lower urinary tract symptom presence: symptoms present Qualified Code(s): N40.1 - Benign prostatic hyperplasia with lower urinary tract symptoms; R33.8 - Other retention of urine
--- NOTE | 2020-11-30 05:28 | Emergency Department Note ---
Impression & Plan Chest pain, Epigastric abdominal pain Admit to the [facility] ED Provider Note NAME: HOPE CARUSO AGE: 75 SEX: M ARRIVES VIA: Ambulance INFORMANT: Patient ED PROVIDER(S): Shahla Fonseca DO CHIEF COMPLAINT: Chest pain PLAN: Disposition: Admit to the [facility] Condition: Stable MEDICAL DECISION MAKING: This is a 75-year-old male patient who presents to the emergency department with chest pain that radiates into his epigastrium that woke him up from sleep. He then had one episode of vomiting. The pain was not subsiding after couple of hours and he came to the emergency department. He underwent CT scanning of the chest, abdomen, and pelvis. There was no evidence of aortic dissection. EKG was unremarkable. Troponin was negative. However, on CT scan, there was evidence of moderate mucosal thickening in the distal esophagus suggesting inflammation. This most likely represents a GI cause of the patient's pain. However, he will require a second troponin to rule out any acute cardiac source of the chest discomfort. Triage Nursing notes reviewed and agree with them. Additional history obtained from the patient's who arrived in the emergency department Vital Signs: reviewed and remarkable for hypertension Differential diagnosis: STEMI, NSTEMI, GERD, aortic dissection, esophagitis, pancreatitis ER treatment provided: IV Zofran, IV fentanyl Diagnostics interpreted by me: ECG: Normal sinus rhythm at a rate of [address] segment elevation or signs of ischemia. There is no ectopy. QTC is 413 ms. Cardiac Monitoring: Normal sinus rhythm at a rate of 72 Laboratory studies: See below Imaging studies: As per stat rad CTA chest: No acute aortic syndrome. No aortic aneurysm. Multivessel coronary artery calcifications. Moderate mucosal thickening of the distal esophagus suggesting inflammation. Small hiatal hernia. Small amount of debris in the lower trachea. CT abdomen pelvis with contrast: No acute aortic syndrome. Eccentric right- sided infrarenal abdominal aortic aneurysm measuring approximately 2.6 mm in diameter. Colonic diverticulosis. Moderate stenosis of the ostium of the right renal artery. Small fat-containing umbilical hernia. HPI: 75/M arrives for evaluation of chest pain. The patient describes being asleep and waking up with some chest discomfort that radiated into his epigastrium. The patient then had one episode of vomiting. The pain has now been ongoing for a couple of hours. Patient then called EMS and was given a dose of aspirin and 2 sublingual nitroglycerin. He states that the second nitroglycerin seem to make the pain worse. He describes the pain as steady with episodes of sharp discomfort that radiate from the chest down into the epigastrium. ROS: See above HPI for pertinent positives & negatives. A total of 10 systems reviewed and were otherwise negative. PAST MEDICAL HISTORY:See Below PAST SURGICAL HISTORY:See Below FAMILY HISTORY:See Below SOCIAL HISTORY:See Below HOME MEDICATIONS:See list ALLERGIES:Lisinopril VITALS:See Below PHYSICAL EXAMINATION: HEENT: Head - normocephalic and atraumatic Pupils are equal, round, and re active to light. Extraocular eye muscles are intact, and sclera are anicteric. Nose - moist nasal mucosa without discharge. Mouth - moist buccal mucosa. Oropharynx is nonerythematous and there is no tonsillar exudate or edema noted. Neck: Supple; no JVD or cervical lymphadenopathy Heart: Regular rate and rhythm. There is a normal S1 and S2 with no murmurs, clicks, or gallops appreciated. Lungs: Clear to auscultation bilaterally with no wheezes, rales, or rhonchi. Abdomen: Soft, completely nontender, nondistended, with good bowel sounds. There are no palpable pulsatile masses or hepatosplenomegaly. There is no guarding, rigidity, or rebound noted. Extremities: No evidence of cyanosis, clubbing, or edema. There are easily palpable peripheral pulses. Skin: warm and dry with good turgor and no rashes. ED COURSE: Times/Reassessments: 0145: The patient was evaluated in room a 10. A complete history and physical was performed. Previous electronic medical records were reviewed. An order was placed for continuous cardiac monitoring. The patient was in a normal sinus rhythm at a rate of 72. A twelve-lead EKG was obtained as described above. The patient was given a dose of IV Zofran and a dose of IV fentanyl. The patient will go for CT scan of the chest, abdomen and pelvis to rule out aortic dissection. Upon returning from radiology, the patient was feeling somewhat better. I reviewed the results of the labs and CTs. I discussed the case with the [facility] hospitalist and they will evaluate for further management. Shahla Fonseca, Past Med/Surg History Medical History (Updated 11/30/20 @ 17:55 by Elizabeth Mcclain MD) Arthritis Coronary artery disease DC (1993). Catheterization with 100% prox LAD occlusion + 60% prox RCA lesion. Repeat catheterization (2004) with similar findings. Treated medi rené with full dose ASA + statin + BB + long acting nitrate + nitro PRN. Normal biventricular function on echo 2008. Follows with Dr. Singh. Diverticulosis Dyslipidemia Enlarged prostate on rectal examination Hiatal hernia Hypertension Left inguinal hernia Normocytic anemia Chronic, stable with baseline H/H ~1235 Pulmonary nodule Recurrent left inguinal hernia Surgical History H/O inguinal hernia repair History of cardiac cath [facility] [place] - 1993 - DC - no stents/angioplasty [facility] [place] - 2004 - no stents/angioplasty - reports 3 blockages but w/ good collateral Follows w/ Dr. Singh History of colonoscopy History of tooth extraction S/P TURP (status post transurethral resection of prostate) Family History Father Heart disease Stroke Brother Heart disease Myocardial infarction Other No family history of adverse response to anesthesia Denies family history of Ovarian cancer Prostate cancer Breast cancer Colorectal cancer Social History Smoking Status: Never smoker Tobacco Type: Cigarettes Age Started Using Tobacco: 15; Age Quit Using Tobacco: 64; packs per day: 1; Years Smoked: 49; Cigarettes Per Day: 1 pack a day; Second Hand Exposure: Yes (hx); Hx Alcohol Use: No Hx Substance Use: No Preferred Language: Japanese Communication Ability: Effective Visual Impairment: Partially Limited Hearing Ability: Use of Hearing Aid Research Chef Required: No Beliefs That Will Affect Care: None marital status: Current Living Situation: Spouse current occupational status: retired Feels Safe at Home: Yes Childhood Exposure to Second-Hand Smoke: No caffeine: Yes Dental Care, Regularly: No Physical Activity Frequency: 3-4 Times per Week Physical Activity Frequency Comment: 2 miles daily Seatbelt Use: always Sunscreen Use: No Assistive Devices: None Allergies Allergies Allergy/AdvReac Type Severity Reaction Status Date / Time lisinopril AdvReac Cough Verified 11/30/20 02:51 Home Meds Home Medications Medication Instructions Recorded Confirmed isosorbide mononitrate 30 mg 30 mg PO QAM #90 tab 02/06/19 12/01/20 tablet,extended release 24 hr metoprolol tartrate 100 mg tablet 100 mg PO BID #60 tab 02/06/19 12/01/20 simvastatin 40 mg tablet 40 mg PO HS #30 tab 02/06/19 12/01/20 docusate sodium 100 mg capsule 100 mg PO BID PRN cap 12/05/19 12/01/20 (Colace) Previous Rx's Medication Instructions Recorded aspirin 81 mg tablet,delayed 81 mg PO QAM #30 tab 10/10/19 release finasteride 5 mg tablet 5 mg PO QAM #90 tab 11/03/20 pantoprazole 40 mg tablet,delayed 40 mg PO DAILY #30 tab 11/30/20 release (Protonix) Results & Data (ED) Vital Signs Vital Signs - 24 hr 11/30/20 01:50 11/30/20 02:00 11/30/20 02:30 Temperature 37.1 C Temperature Source Oral Pulse Rate 89 79 83 Pulse Rate from SpO2 Sensor 79 84 Respiratory Rate 22 18 20 Respiratory Effort / Characteristics Non-Labored Spontaneous Respiratory Depth Normal Blood Pressure 153/96 H Blood Pressure Mean 115 Pulse Oximetry 94 96 95 Oxygen Delivery Method Room Air Room Air Room Air Sepsis New/Unexplained Change in Mental Status N/A Sepsis Action Taken by Nursing No Action Required 11/30/20 04:00 Temperature Temperature Source Pulse Rate 72 Pulse Rate from SpO2 Sensor Respiratory Rate 22 Respiratory Effort / Characteristics Respiratory Depth Blood Pressure 183/97 H Blood Pressure Mean 125 Pulse Oximetry 96 Oxygen Delivery Method Sepsis New/Unexplained Change in Mental Status Sepsis Action Taken by Nursing Laboratory Data Result diagrams: 11/30/20 01:44 11/30/20 01:44 Lab Results 11/30/20 11/30/20 11/30/20 Range/Units 01:44 01:44 01:44 WBC 9.32 (4.8-10.8) K/uL RBC 4.47 L (4.7-6.1) M/uL Hgb 13.9 L (14.0-18.0) g/dL POC Hgb (14.0-18.0) g/dl Hct 40.4 L (42-52) % POC Hct (42-52) % MCV 90.4 (80-100) fL MCH 31.1 (25-34) pg MCHC 34.4 (32-36) g/dL RDW Std Deviation 41.7 (36.4-46.3) fL RDW Coeff of Aleksander 12.7 (11.5-14.5) % Plt Count 185 (130-400) K/uL MPV 10.7 H (7.4-10.4) fL Immature Gran % (Auto) 0.2 % Neut % (Auto) 82.0 % Lymph % (Auto) 4.7 % [place] % (Auto) 10.0 % Eos % (Auto) 3.0 % Baso % (Auto) 0.1 % Neut # (Auto) 7.64 H (1.4-6.5) K/uL Lymph # (Auto) 0.44 L (1.2-3.4) K/uL [place] # (Auto) 0.93 H (0.11-0.59) K/uL Eos # (Auto) 0.28 (0-0.5) K/uL Baso # (Auto) 0.01 (0-0.2) K/uL Immature Gran # (Auto) 0.02 (0.00-0.02) K/uL APTT 28.4 (21.0-31.0) Seconds PTT Ratio 1.1 POC Sodium (135-144) mmol/L Sodium 135 L (136-145) mmol/L POC Potassium (3.3-5.0) mmol/L Potassium 4.3 (3.5-5.1) mmol/L POC Chloride (101-112) mmol/L Chloride 106 (98-107) mmol/L Carbon Dioxide 24 (21-32) mmol/L POC Total CO2 (24-31) mmol/L Anion Gap 5.0 (3-11) POC Anion Gap (16-25) mmol/L POC BUN (7-18) mg/dl BUN 19 H (7-18) mg/dl Creatinine 1.33 (0.6-1.4) mg/dl POC Creatinine (0.6-1.3) mg/dl Est Cr Clr Drug Dosing 55.9 ml/min Est GFR ( Amer) 59.8 ml/min Est GFR (Non-Af Amer) 51.6 ml/min BUN/Creatinine Ratio 14.2 (10-20) Glucose 166 H (70-99) mg/dl POC Glucose (other) (70-99) mg/dl Calcium 8.6 (8.5-10.1) mg/dl POC Ioniz Calcium Mi (1.12-1.32) mmol/l Total Bilirubin 0.4 (0.2-1) mg/dl AST 13 L (15-37) U/L ALT 21 (12-78) U/L Alkaline Phosphatase 103 (45-117) U/L Troponin I < 0.015 (0-0.045) ng/ml Total Protein 7.2 (6.4-8.2) gm/dl Albumin 3.7 (3.4-5.0) gm/dl Globulin 3.5 (2.5-4.0) gm/dl Albumin/Globulin Ratio 1.1 (0.9-2) Lipase 86 (73-393) U/L COVID-19 Eval Order SARS-CoV-2 (PCR) (Negative) 11/30/20 11/30/20 11/30/20 Range/Units 02:05 03:37 03:37 WBC (4.8-10.8) K/uL RBC (4.7-6.1) M/uL Hgb (14.0-18.0) g/dL POC Hgb 13.6 L (14.0-18.0) g/dl Hct (42-52) % POC Hct 40 L (42-52) % MCV (80-100) fL MCH (25-34) pg MCHC (32-36) g/dL RDW Std Deviation (36.4-46.3) fL RDW Coeff of Aleksander (11.5-14.5) % Plt Count (130-400) K/uL MPV (7.4-10.4) fL Immature Gran % (Auto) % Neut % (Auto) % Lymph % (Auto) % Cr[place]enden % (Auto) % Eos % (Auto) % Baso % (Auto) % Neut # (Auto) (1.4-6.5) K/uL Lymph # (Auto) (1.2-3.4) K/uL Cr[place]enden # (Auto) (0.11-0.59) K/uL Eos # (Auto) (0-0.5) K/uL Baso # (Auto) (0-0.2) K/uL Immature Gran # (Auto) (0.00-0.02) K/uL APTT (21.0-31.0) Seconds PTT Ratio POC Sodium 137 (135-144) mmol/L Sodium (136-145) mmol/L POC Potassium 4.4 (3.3-5.0) mmol/L Potassium (3.5-5.1) mmol/L POC Chloride 99 L (101-112) mmol/L Chloride (98-107) mmol/L Carbon Dioxide (21-32) mmol/L POC Total CO2 20 L (24-31) mmol/L Anion Gap (3-11) POC Anion Gap 23.0 (16-25) mmol/L POC BUN 20 H (7-18) mg/dl BUN (7-18) mg/dl Creatinine (0.6-1.4) mg/dl POC Creatinine 1.1 (0.6-1.3) mg/dl Est Cr Clr Drug Dosing ml/min Est GFR ( Amer) ml/min Est GFR (Non-Af Amer) ml/min BUN/Creatinine Ratio (10-20) Glucose (70-99) mg/dl POC Glucose (other) 167 H (70-99) mg/dl Calcium (8.5-10.1) mg/dl POC Ioniz Calcium Mi 1.30 (1.12-1.32) mmol/l Total Bilirubin (0.2-1) mg/dl AST (15-37) U/L ALT (12-78) U/L Alkaline Phosphatase (45-117) U/L Troponin I (0-0.045) ng/ml Total Protein (6.4-8.2) gm/dl Albumin (3.4-5.0) gm/dl Globulin (2.5-4.0) gm/dl Albumin/Globulin Ratio (0.9-2) Lipase (73-393) U/L COVID-19 Eval Order Covid19 at [facility] SARS-CoV-2 (PCR) NEGATIVE (Negative) Administered Medications Discontinued Medications Aspirin (Aspirin 81 Mg Ectab) [facility] Stop: 12/30/20 08:59 Last Admin: 11/30/20 09:54 Dose: 81 mg Documented by: [id number] Fentanyl Citrate (Fentanyl Citrate 100 Mcg/2 Ml Vial) 50 mcg IV NOW STA Stop: 11/30/20 02:01 Last Admin: 11/30/20 02:10 Dose: 50 mcg Documented by: [id number] Finasteride (Finasteride 5 Mg Tab) 5 mg PO QAM [facility] Stop: 12/30/20 08:59 Last Admin: 11/30/20 09:54 Dose: 5 mg Documented by: [id number] Heparin Sodium (Porcine) (Heparin Sod 5,000 Unit/0.5 Ml Vial) 5,000 units SQ Q12 RIKKI Stop: 12/30/20 08:59 Last Admin: 11/30/20 09:55 Dose: 5,000 units Documented by: [id number] Sodium Chloride (Nss 1000ml) 1,000 mls @ 120 mls/hr IV .[id number] RIKKI Stop: 11/30/20 23:02 Last Admin: 11/30/20 13:02 Dose: 120 mls/hr Documented by: [id number] Infusion: 11/30/20 13:02 Dose: 120 mls/hr Documented by: [id number] Admin: 11/30/20 06:45 Dose: 120 mls/hr Documented by: [id number] Pantoprazole Sodium 40 mg/ (Syringe) 10 mls @ 5 mls/min IV BID RIKKI Stop: 12/30/20 08:59 Last Admin: 11/30/20 09:54 Dose: 5 mls/min Documented by: [id number] Ioversol (Optiray 320 125ml) 120 ml IV ONCE ONE Stop: 11/30/20 02:26 Last Admin: 11/30/20 02:23 Dose: 120 ml Documented by: [id number] Isosorbide Mononitrate (Isosorbide [place] Extended Rel 30 Mg Tabcr) 30 mg PO QAM [facility] Stop: 12/30/20 08:59 Last Admin: 11/30/20 09:54 Dose: 30 mg Documented by: [id number] Metoprolol Tartrate (Metoprolol Tartrate 100 Mg Tab) 100 mg PO BID RIKKI Stop: 12/30/20 08:59 Last Admin: 11/30/20 09:55 Dose: 100 mg Documented by: [id number] Ondansetron HCl (Ondansetron Inj 2 Mg/Ml 2 Ml Vial) 4 mg IV NOW STA Stop: 11/30/20 02:00 Last Admin: 11/30/20 02:10 Dose: 4 mg Documented by: [id number] Discharge Plan Visit Data Chief Complaint: Cardiac Assessment Stated Complaint: CHEST PAIN ED Provider: Shahla Fonseca Discharge Problem: Chest pain, Epigastric abdominal pain Patient Disposition: Admitted As Inpatient Condition: Good Discharge Instructions Interventions: ED Discharge Assessment Last Done: 11/30/20 06:00 Discharge Problem: Chest pain Qualifiers: Chest pain type: other chest pain Qualified Code(s): R07.89 - Other chest pain
[2020-11-30] MEDS ORDERED: ACETAMINOPHEN 1,000 MG/100 ML VIAL IV PRN (06:23)
[2020-11-30] MEDS ORDERED: ONDANSETRON INJ 2 MG/ML 2 ML VIAL IV PRN (06:23)
[2020-11-30] MEDS ORDERED: DOCUSATE SODIUM 100 MG CAP PO PRN (06:23)
[2020-11-30] MEDS: SODIUM CHLORIDE 0.9% 1000ML 1,000 ML IV SCH ×2 (06:45→13:02)
--- NOTE | 2020-11-30 08:59 | CT Scan Report ---
CT ANGIOGRAPHY OF THE CHEST DISSECTION PROTOCOL CLINICAL HISTORY: Atypical chest pain. Evaluate for dissection. COMPARISON STUDY: Chest radiograph October 02, 2019. Chest CT May 09, 2008. TECHNIQUE: Before and following the IV administration of 120 mL of Optiray, helical axial images of t he chest were obtained. Maximal intensity projections and sagittal and coronal reformats were viewed on an independent 3D workstation. IV contrast was administered without complication. Automated exp osure control was utilized for the study. A dose lowering technique was utilized adhering to the paulo Camille. FINDINGS: Caliber of the thoracic aorta is normal. There is no thoracic aortic dissection or intramu ral hematoma. Incidental note is made of an aberrant right subclavian artery. Moderate cardiomegaly a nd coronary artery calcification is present. No pulmonary emboli are identified. There is no thoracic lymphadenopathy. Stomach is mildly distended and fluid-filled. There is a small hiatal hernia. Wall thickening of the mid to distal esophagus is present. There is no consolidation to suggest pneumonia. No pneumothorax or pleural effusion is noted. There is a 1.1 cm ground glass nodule within the right upper lobe on image 46 of 301. This is new since CT of May 09, 2008. A 5 mm or subpleural right mid dle lobe nodule on image 179 is unchanged. This is benign. Abdomen and pelvis will be reported separa tely IMPRESSION: 1. No thoracic aortic dissection. 2. No consolidation to suggest pneumonia. 3. Small hiatal hernia with wall thickening of the mid to distal esophagus. Although nonspecific, thi s may reflect esophagitis. 4. 1.1 cm groundglass right upper lobe nodule. This is indeterminate and a neoplasm cannot be exclude d. Chest CT in 6 months is recommended for further evaluation. 5. Moderate cardiomegaly and coronary artery calcification. ACT 112: Positive. There are findings on this exam that require communication between the performing entity and the patient following Patient Test Result Information Act ([place] Act 112) guidelines. Electronically signed by: Melvin Ibarra M.D. 11/30/2020 8:57 AM
[2020-11-30] MEDS ORDERED: METOPROLOL TARTRATE 100 MG TAB PO SCH (09:00)
[2020-11-30] MEDS ORDERED: PANTOprazole 40 MG in SYRINGE 0 ML IV SCH (09:00)
[2020-11-30] MEDS ORDERED: ISOSORBIDE MONO EXTENDED REL 30 MG TABCR PO SCH (09:00)
[2020-11-30] MEDS ORDERED: ASPIRIN 81 MG ECTAB PO SCH (09:00)
[2020-11-30] MEDS ORDERED: HEPARIN SOD 5,000 UNIT/0.5 ML VIAL SQ SCH (09:00)
[2020-11-30] MEDS ORDERED: FINASTERIDE 5 MG TAB PO SCH (09:00)
--- NOTE | 2020-11-30 09:04 | CT Scan Report ---
CT angio abdomen pelvis w con CLINICAL HISTORY: eval for dissection TECHNIQUE: Multidetector row helical CT of the abdomen, pelvis and bilateral lower extremities down t hrough the feet was performed, following intravenous administration of 140 cc of Omnipaque-350. No or al contrast was administered. Coronal and sagittal reformations were obtained. MIP and 3D volume rend ered reconstructions were obtained. Comparison: Comparison is made to CT abdomen pelvis 10/08/2019 FINDINGS: Lower chest: No acute abnormality Liver: Hepatic steatosis is noted. Gallbladder and biliary tree: No calcified gallstones. Normal caliber wall. No intra- or extrahepatic biliary ductal dilation. Pancreas: Unremarkable, no focal lesions. Spleen: Unremarkable. Adrenals: Unremarkable. Kidneys and ureters: Unremarkable. Bladder: Bladder is under distended. There is fusion of diffuse homogeneous thickening. Reproductive organs: Prostatomegaly is seen. Bowel: Diverticulosis is seen without evidence of diverticulitis. There is a moderate hiatal hernia. The stomach is distended. Lymph nodes Retroperitoneal: Unremarkable. Mesenteric: Unremarkable. Pelvic: Unremarkable. Peritoneum: Normal Abdominal wall: A tiny umbilical helical hernia is seen. A fat-containing left inguinal hernia is see n. Bones: Degenerative changes in the visualized spine. CT angiogram: The abdominal aortic contours appear intact without evidence of aneurysmal dilatation a nd/or dissection. There is evidence of scattered atherosclerotic calcifications of the abdominal aor ta and its major branches noted. The origins of the celiac axis, superior mesenteric, inferior mesenteric and bilateral renal arteries are patent. IMPRESSION: Stable eccentric right infrarenal abdominal aortic aneurysm measuring 2.6 cm. No evidence of acute ao rtic syndrome. ACT 112: Negative or not required by law. Electronically signed by: William Atkinson M.D. 11/30/2020 9:02 AM
[2020-11-30] MEDS ORDERED: INFLUENZA VACCINE HIGH DOSE PF 65+ 0.7 ML SYR IM ONE (12:00)
--- NOTE | 2020-11-30 17:55 | Discharge Summary ---
Date of Service November 30, 2020 Admission HPI Per Admitting Provider Mr. Okeefe is a 75 yo gentleman who came to the [facility] ED for evaluation of sudden onset epigastric pain. He went to bed this evening and the sharp epigastric pain awoke him from sleep. He did vomit once after the pain started; it was non-bloody. He became slightly diaphoretic after vomiting, but denies any associated SOB. He said the pain seemed to be worse when laying flat - in response he got up out of bed and felt better in a standing position. The pain is provoaked by deep inspiration. He did have one episode of diarrhea yesterday. No fevers. He does have a history of CAD and GERD. He manages the latter with prn TUMS, as he is not on any acid blocking therapy. He likened the sensation he felt this evening to his typical reflux - however it differed in that he usually feels acid reflux all the way up to the throat. This time, the pain is concentrated in the epigastrium. Sx: Former smoker- quit many years ago. He does drink 4 beers, twice weekly. Does not use NSAIDs due to his underlying CKD In the ED, he was febrile and hemodynamically stable. His CBC and CMP were normal. His trop was undetectable. Lipase was not elevated. EKG showing NSR at 84 bpm; no acute ST segment changes. 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 He was given zofran and fentanyl 50mcg. Principal Diagnosis chest pain, noncardiac, possible esophagitis Discharge Exam Constitutional WD/WN, vitals as above Eyes PERRL, conjunctivae normal, anicteric sclerae ENMT external ear and nose normal, oropharynx normal Neck trachea midline, no thyromegaly Respiratory normal respiratory effort, lungs clear to auscultation Cardiovascular RRR, no murmur, no edema Chest (Breasts) Chest: normal inspection of chest Gastrointestinal (Abdomen) normal bowel sounds, soft, nontender, no hepatosplenomegaly Musculoskeletal Extremities: extremities normal to inspection; no cyanosis and no clubbing Skin no rashes, warm and dry Neurologic moves all extremities and awake; no focal motor deficits Psychiatric A+Ox3, euthymic affect Lymphatic no lymphedema Discharge Data Allergies Allergy/AdvReac Type Severity Reaction Status Date / Time lisinopril AdvReac Cough Verified 11/30/20 02:51 Consultations 11/30/20 04:12 ED Decision to Admit Stat 11/30/20 17:53 Consult [facility] global commodity manager Routine Ordered Studies 11/30/20 01:57 CT angio abdomen pelvis w con Urgent CT angio chest dissec wo/w con Urgent Hospital Course (1) Chest pain: (1) Epigastric pain: Plan: Mr. Okeefe is a 75 yo M with a PMHx of CAD and GERD who presented to [facility] for evaluation of sudden onset epigastric pain. - etiology uncertain: CTA of chest and abdomen showed no perforation or aneurysmal dissection but did show thickened esophagus. - Finding of moderate mucosal thickening in distal esophagus on CTA of abdomen is concerning for peptic ulcer disease; risk factors include etoh intake and hiatal hernia - Protonix 40mg IV given serial troponin negative, ECG no ischemic changes, do not suspect cardiac in nature symptoms completely resolved GI did not feel necessary for inpatient consultation--> will have him f/u with GI as an outpt for possible EGD -continue Protonix 40mg po daily on discharge (2) Coronary artery disease: Plan: - continue home simvastatin, asa, imdur and metoprolol (3) Hypertension: Plan: - continue home dose metoprolol - renal artery stenosis noted on CTA of abdomen; if his BP runs above goal in the future, consideration could be given to stenting (4) CKD (chronic kidney disease) stage 4, GFR 15-29 ml/min: Plan: - Creatinine 1.33 on admission, Cr Cl 51 - renally dose as appropriate; avoid nsaids (5) Abdominal aortic aneurysm: Plan: - noted incidentally on CTA of abdomen - small size (2.6cm) - not a current smoker - routine surveillance as outpt (6) Benign prostate hyperplasia: Plan: - continue home dose finasteride PULM NODULE-needs f/u chest CT in 6 months-discussed with pt Dispo-dc to home (2) Abdominal aortic aneurysm: (3) Venous stasis: (4) CKD (chronic kidney disease) stage 4, GFR 15-29 ml/min: (5) Benign prostate hyperplasia: (6) Hypertension: (7) Coronary artery disease: (8) Normocytic anemia: (9) Dyslipidemia: (10) Pulmonary nodule: Total Time Total Time Spent Total Time Spent (In Minutes): 35 min Discharge Plan Discharge Items Patient Disposition: Home - Self-Care Reason For Visit: EPIGASTRIC PAIN Discharge Diagnosis: Epigastric/chest pain, non-cardiac, possible esophagitis Condition on Discharge: Good Activity: Resume your previous activity Non-emergency contact: Primary Care Provider and Social Worker Clinical Call non-emergency contact if: you have any medication questions, your symptoms worsen, your pain is not controlled and your pain is worsening Follow-up/Referrals: Chance Rodriguez MD [Physician] - (Please follow up within 2 weeks for possible EGD) Javid Jeong DO [Primary Care Provider] - (Please follow up within 1-2 weeks.) Diet: Heart Healthy Addtl Attending Provider Instructions: You were admitted to rule out heart attack due to your chest pain. You had a normal workup of the heart. Your chest CT scan did show thickening at the bottom of your esophagus and this may be due to inflammation of the esophagus. Please start taking an antacid called Protonix 40mg once daily and we will arrange follow up with a GI doctor to see about getting an EGD (endoscopy with a camera to look inside your esophagus and stomach) to make sure there is nothing more concerning going on. You were also found to have a small lung nodule in your right lung that will require a [address] scan to make sure it is not growing larger. You also were found to have a small aneurysm (stretching out) of your abdominal aortic artery. This does not require any intervention at this time, but will need to be watched over time to see if it enlarges. Follow up with your PCP within 1-2 weeks. Pending Studies at Discharge: No Stand-Alone Forms: My [facility] Medications and DC Order Prescriptions: New pantoprazole [Protonix] 40 mg tablet,delayed release (DR/EC) 40 mg PO DAILY Qty: 30 RF: 0 Continued finasteride 5 mg tablet 5 mg PO QAM Qty: 90 RF: 3 docusate sodium [Colace] 100 mg capsule 100 mg PO BID PRN (Reason: Constipation) RF: 0 isosorbide mononitrate 30 mg tablet extended release 24 hr 30 mg PO QAM Qty: 90 RF: 0 metoprolol tartrate 100 mg tablet 100 mg PO BID Qty: 60 RF: 0 simvastatin 40 mg tablet 40 mg PO HS Qty: 30 RF: 0 aspirin 81 mg Tablet,Delayed Release (Dr/Ec) 81 mg PO QAM Qty: 30 RF: 0 Discharge Orders: Discharge Order (Routine); Ordered 11/30/20 Ordered By: Elizabeth Mcclain Admission Data Admit Date/Time: 11/30/20 04:28 Attending Provider: Elizabeth Mcclain Admit Provider: Gi Juarez Primary Care Provider: Javid Jeong Other Providers: Giovani Newton ; Paty Rashid Coding Level of Care Code 22921 OBS Care - Discharge Diagnoses Chest pain R07.89 Chest pain type: other chest pain Abdominal aortic aneurysm I71.4 Venous stasis I87.8 CKD (chronic kidney disease) stage 4, GFR 15-29 ml/min N18.4 Benign prostate hyperplasia N40.1; R33.8 Lower urinary tract symptom presence: symptoms present Lower urinary tract symptom detail: urinary retention Hypertension I10 Coronary artery disease I25.10 Normocytic anemia D64.9 Dyslipidemia E78.5 Pulmonary nodule R91.1
[2020-11-30] MEDS ORDERED: SIMVASTATIN 40 MG TAB PO SCH (21:00)
--- NOTE | 2020-11-30 22:43 | Billing Data ---
Date of Service November 30, 2020 Coding Level of Care Code INT OBSERVATION CARE 69M LVL 3
--- NOTE | 2020-12-01 05:55 | Electrocardiogram Report ---
Test Reason : Blood Pressure : / mmHG Vent. Rate : 084 BPM Atrial Rate : 084 BPM P-R Int : 156 ms QRS Dur : 090 ms QT Int : 350 ms P-R-T Axes : 028 022 088 degrees QTc Int : 413 ms Normal sinus rhythm Septal infarct (cited on or before 09-OCT-2019) Abnormal ECG When compared with ECG of 09-OCT-2019 11:01, Vent. rate has increased BY 30 BPM Confirmed by Fred Madrid ([id number] on 12/01/2020 5:54:52 AM Referred By: REFERRED SELF Confirmed By:Fred Madrid
== END 2020-11-30 18:41 | disposition home or self-care (01) ==
LOC: ED 01:33 → EDINP 01:33 → SUATTDRO 04:28 → EDINP 06:00 → 2N 16:28